=== PATIENT | female | born 1970 | race Caucasian/White ===

== ENCOUNTER 2019-02-11 22:38 | Inpatient (IN) ==
[2019-02-11 23:27] LABS: Basophils # 0.1 K/mcL (0.0-0.2); Basophils % 0.9 %; Eosinophils # 0.2 K/mcL (0.0-0.6); Eosinophils % 2.2 %; Hematocrit 42.1 % (35.3-44.9); Hemoglobin 14.6 g/dL (11.5-15.4); Immature Granulocytes % 0.4 % (0-4); Lymphocytes # 2.4 K/mcL (0.6-4.6); Lymphocytes % 31.2 %; Mean Corpuscular HGB Conc 34.7 g/dL (31.6-35.5); Mean Corpuscular Hemoglobin 28.6 pg (28.0-33.3); Mean Corpuscular Volume 82.4 fL (83.0-100.0); Mean Platelet Volume 9.5 fL (9.4-12.4); Monocytes # 0.8 K/mcL (0.0-1.3); Monocytes % 9.8 %; Neutrophils # 4.3 K/mcL (1.6-8.9); Platelet Count 378 K/mcL (140-400); Red Blood Count 5.11 M/mcL (3.82-4.97); Red Cell Distribution Width 13.9 % (11.5-14.5); Segmented Neutrophils % 55.5 %; White Blood Count 7.7 K/mcL (4.3-11.1)
[2019-02-11 23:36] LABS: Bilirubin,Urine Negative (Negative); Blood,Urine Negative (Negative); Clarity,Urine Cloudy (Clear); Color,Urine Yellow (Yellow); Glucose,Urine (UA) Normal (Normal); Ketones,Urine Negative (Negative); Leukocyte Esterase,Urine Trace (Negative); Nitrite,Urine Negative (Negative); PH,Urine 5.5 pH Units (5.0-8.0); Protein,Urine Negative (Neg-Trace); Specific Gravity,Urine 1.015 (1.010-1.025); Urobilinogen,Urine Normal (Normal)
[2019-02-11 23:41] LABS: Acetaminophen < 10 mcg/mL (10-20); Alanine Aminotransferase 20 Units/L (7-52); Albumin 4.2 g/dL (3.5-5.7); Albumin/Globulin Ratio 1.4 (1.1-2.2); Alkaline Phosphatase 67 Units/L (34-104); Aspartate Amino Transferase 16 Units/L (13-39); BUN/Creatinine Ratio 13 (6-26); Bilirubin,Direct 0.1 mg/dL (0.0-0.2); Bilirubin,Indirect 0.4 mg/dL (0.0-1.0); Bilirubin,Total 0.5 mg/dL (0.3-1.0); Blood Urea Nitrogen 15 mg/dL (6-20); Calcium 9.3 mg/dL (8.6-10.3); Carbon Dioxide 21 mEq/L (23-29); Chloride 102 mEq/L (98-107); Ethanol < 10 mg/dL (Less than 10); Globulin 3.1 g/dL (2.4-3.5); Glucose 131 mg/dL (70-105); Osmolality,Calculated 281 (280-300); Potassium 3.3 mEq/L (3.5-5.1); Salicylate < 2.5 mg/dL (15.0-30.0); Sodium 134 mEq/L (136-145); Total Protein 7.3 g/dL (6.4-8.9); eGFR For African Americans 58 (> 60); eGFR For Non-African Americans 48 (> 60)
[2019-02-11 23:42] LABS: Amphetamine Screen,Urine Negative ng/mL (Cutoff=1000); Barbiturate Screen,Urine Negative ng/mL (Cutoff=200); Benzodiazepines Screen,Urine Negative ng/mL (Cutoff=200); Cannabinoid Screen,Urine Negative ng/mL (Cutoff = 50); Cocaine Screen,Urine Negative ng/mL (Cutoff= 300); Opiate Screen,Urine Negative ng/mL (Cutoff=300); Phencyclidine Screen,Urine Negative ng/mL (Cutoff=25)
[2019-02-11 23:50] LABS: Bacteria,Urine None Seen per hpf (None-Few); Hyaline Casts,Urine None Seen per lpf (None-Few); Squamous Epithelial Cell,Urine Many per lpf (None-Few)
[2019-02-12] MEDS ORDERED: *HR* LORazepam 1 MG TABLET PO PRN (03:17)
[2019-02-12] MEDS ORDERED: traZODone 50 MG TABLET PO PRN (03:17)
[2019-02-12] MEDS ORDERED: hydrOXYzine pamoate 25 MG CAPSULE PO PRN (03:17)
[2019-02-12] MEDS ORDERED: Mag Hydrox/Al Hydrox/Simeth 30 ML UDC PO PRN (03:17)
[2019-02-12] MEDS ORDERED: MOM Conc 10 ML UD.LIQ PO PRN (03:17)
[2019-02-12] MEDS ORDERED: Haloperidol Lactate 5 MG/ML VIAL IM PRN (03:17)
[2019-02-12] MEDS ORDERED: *HR* LORazepam 2 MG/ML VIAL IM PRN (03:17)
[2019-02-12] MEDS ORDERED: Acetaminophen 325 MG TABLET PO PRN (03:17)
[2019-02-12] MEDS: amLODIPine 5 MG TABLET PO SCH ×2 (10:18→20:51)
[2019-02-12] MEDS: Nicotine 14 MG PATCH.TD24 TD SCH ×2 (10:18→16:45)
[2019-02-12] MEDS: Fluticasone Propionate Nasal 50 MCG/SPRAY BOTTLE NS SCH (10:22)
[2019-02-12] MEDS: Ranolazine 500 MG TAB.ER.12H PO SCH ×2 (10:22→20:50)
[2019-02-12 12:40] LABS: Alanine Aminotransferase 22 Units/L (7-52); Aspartate Amino Transferase 19 Units/L (13-39)
[2019-02-12 12:42] LABS: Chol/HDL Ratio 8.3 (0-4.9)
[2019-02-12 12:56] LABS: Thyroid Stimulating Hormone 2.482 mcIU/mL (0.340-5.600)
[2019-02-13] MEDS: Ranolazine 500 MG TAB.ER.12H PO SCH ×2 (09:03→20:55)
[2019-02-13] MEDS: Nicotine 14 MG PATCH.TD24 TD SCH (09:03)
[2019-02-13] MEDS: amLODIPine 5 MG TABLET PO SCH ×2 (09:03→20:56)
[2019-02-13] MEDS: Fluticasone Propionate Nasal 50 MCG/SPRAY BOTTLE NS SCH (09:04)
[2019-02-13 12:17] LABS: Estimated Average Glucose 134 mg/dl
[2019-02-14] MEDS: Ranolazine 500 MG TAB.ER.12H PO SCH (08:08)
[2019-02-14] MEDS: amLODIPine 5 MG TABLET PO SCH (08:08)
[2019-02-14] MEDS: Fluticasone Propionate Nasal 50 MCG/SPRAY BOTTLE NS SCH (08:09)
[2019-02-14] MEDS: Nicotine 14 MG PATCH.TD24 TD SCH (08:46)
[2019-02-14 10:52] VITALS: BP 137/89
== END 2019-02-14 14:10 | disposition home or self-care (01) | DRG 918 ==
LOC: EMEROOARM 22:38 → 1ANU 02-12 02:59 → SUATTDRO 02-12 02:59 → 1ANU 02-12 03:07
PROVIDERS: ADMIT Psychiatry & Neurology Psychiatry; ATTEND Psychiatry & Neurology Psychiatry